=== PATIENT | male | born 1995 | race Caucasian/White ===

== ENCOUNTER 2019-12-24 13:12 | Emergency (ER) | payer MEDICAID, SELFPAY ==
--- NOTE | 2019-12-24 13:15 | DI.US_ITS ---
EXAM: US SCROTUM CLINICAL HISTORY: Left testicle painful lump TECHNIQUE: Ultrasound performed using standard protocol. COMPARISON: No exams were available for comparison FINDINGS: Scrotal ultrasound was performed according to usual protocol. Testes appear normal in echotexture an d symmetrical in size, there is normal vascular flow to both testes. The epididymi are unremarkable in appearance bilaterally. Note is made of a large left varicocele. No right varicocele seen. IMPRESSION: No evidence of an intra testicular mass. Left varicocele noted. DATA REPOSITORY:
[2019-12-24 13:19] VITALS: BP 139/96; PULSE 89; TEMP 36.8; O2SAT 99
[2019-12-24 13:42] VITALS: RESP 18
--- NOTE | 2019-12-24 15:00 | W.ED.GENAD ---
Discharge Plan Disposition Patient Disposition: HOME Condition: Stable Discharge Details Chief Complaint: GenMedical Clinical Impression: Varicocele Primary Care Provider: None,None ED Provider: Jignesh Mckeon Home Meds and New Rx's Prescriptions: Continued ibuprofen 200 MG tablet 200 mg PO PRN PRNRF: 0 Discharge Instructions Instructions: Varicocele (ED) Additional Instructions: At this time your urinalysis unremarkable, ultrasound reveals a varicocele. As we discussed you may find that wearing more tighter fitting underwear may be more comfortable. I have placed you on the care management list as well as the urology callback list. I will give you the name and number of our local urology team, please contact their office tomorrow for prompt outpatient reevaluation. Please watch for new or worsening symptoms and return to the ER for any concerns Referrals: Irving Hodges MD [ [facility] STAFF PHYSICIAN] - Medical Decision Making 24-year-old gentleman presenting for evaluation of left scrotum mass, discomfort for at least 2 years. He is specifically concerned that he may have testicular cancer. I feel as though the examination is most consistent with a varicocele. He denies having ever been sexually active, extremely low suspicion for infectious process. Will obtain ultrasound for further evaluation as well as urinalysis and send off a GC and chlamydia. Patient comfortable this plan Urinalysis unremarkable Ultrasound of scrotum reveals no evidence of an intratesticular mass. Left varicocele noted GC chlamydia pending although extremely low suspicion Findings with patient. Place him on the care management team to help expedite outpatient care and I will give him the name and number of our local urology team. I will also place him on the urology callback list. Medical Records Medical records reviewed: Yes I reviewed the patient's medical records. HPI General Mode of arrival: ambulatory. Date/Time Provider Initiated Documentation: 12/24/19 13:24. Limitations to Documentation: no limitations. Information obtained by: patient. HPI Narrative: This is a 24-year-old gentleman who denies any past medical history presenting with left testicle discomfort and possible mass for the past 2 years. He reports that the area seems to be more painful more frequently and may be getting a little larger so decided to come get it checked out. Denies recent illness or trauma. Denies any dysuria, hematuria, penile pain or discharge. He denies having ever been sexually active and therefore denies any STD risk. He reports that sometimes the pain seems to go up into his groin or lower abdomen on the left side. Nothing makes it worse or better. Related Data Home Medications Medication Instructions Recorded Confirmed ibuprofen 200 mg PO PRN PRN 02/18/13 12/24/19 Allergies Allergy/AdvReac Type Severity Reaction Status Date / Time No Known Allergies Allergy Unverified 02/18/13 19:22 General Stated Complaint: GenMedical JOANIE: 3 Review of Systems Constitutional Constitutional: Denies fever(s) and Denies weakness Cardiovascular Cardiovascular: Denies chest pain and Denies dyspnea Respiratory Respiratory: Denies cough and Denies dyspnea Gastrointestinal Gastrointestinal: Reports abdominal pain, Denies nausea and Denies vomiting Genitourinary Genitourinary: Denies hematuria, Denies oliguria, Denies difficulty urinating, Denies genital lesions, Denies genital pain, Denies dysuria, Denies penile discharge, Reports scrotal swelling, Reports testicular mass, Reports testicular pain, Denies urinary frequency, Denies urinary hesitancy and Denies urinary urgency Musculoskeletal Musculoskeletal: Denies back pain and Denies tingling Integumentary/Breasts Skin/Breast: Denies rash Neurologic Neurologic: Denies tingling and Denies weakness [facility] Social History Smoking/Tobacco Use Status: Never Alcohol Intake: never Drug use: Never Substance use type: does not use Do you feel safe at home: Yes Do you feel safe in your relationship?: Yes Exam Const General: cooperative, healthy appearing, comfortable and no acute distress Orientation: alert, awake and oriented x3 HENMT Head: normal to inspection, normocephalic and atraumatic Mouth: moist mucous membranes Eyes Conjunctivae: conjunctivae normal Sclera: sclerae normal Neck Neck: normal visual inspection, full ROM, trachea midline and supple Resp Effort & Inspection: normal respiratory effort and able to speak in complete sentences Auscultation: clear to auscultation bilaterally Cardio Rate: regular rate Rhythm: regular rhythm GI Inspection: normal to inspection Palpation: soft, no hernias and nontender Male General Exam: Yes normal external exam Penis: normal penis Meatus: meatus normal Scrotum: varicocele on the left Testes: normal Back/Spine/Pelvis Back: No back tenderness Skin General skin exam: no rashes or lesions noted Neuro General: patient alert, patient awake, moves all extremities and no focal motor deficits Gait: normal gait Motor: muscle tone normal throughout Sensory Exam: no sensory deficits noted Psych Appearance: grossly normal Mental Status: mental status grossly normal Course Vital Signs Vital signs: Vital Signs Temperature 36.8 C 12/24/19 13:19 Pulse 89 12/24/19 13:19 Blood Pressure 139/96 H 12/24/19 13:19 Pulse Oximetry 99 12/24/19 13:19 Temperature 36.8 C 12/24/19 13:19 Temperature Source Temporal Artery Scan 12/24/19 13:19 Pulse 89 12/24/19 13:19 Respiratory Rate 18 12/24/19 13:42 Respiratory Effort Non-Labored 12/24/19 13:42 Respiratory Depth Normal 12/24/19 13:42 Respiratory Pattern Normal 12/24/19 13:42 Blood Pressure 139/96 H 12/24/19 13:19 Blood Pressure Position Sitting 12/24/19 13:19 Pulse Oximetry 99 12/24/19 13:19 Oxygen Delivery Method Room Air 12/24/19 13:19 Oxygen Flow Rate 0 12/24/19 13:19 Pain Level 5 12/24/19 13:19
[2019-12-24 15:18] LABS: Bilirubin Negative (Negative); Blood Negative (Negative); Clarity Clear (Clear); Glucose Negative (Negative); Ketones Negative (Negative); Leukocyte Esterase Negative (Negative); Nitrite Negative (Negative); Urobilinogen 0.2 EU/dL (Up TO 0.2)
[2019-12-24 15:39] VITALS: BP 140/80; PULSE 81; RESP 18; TEMP 36.6; O2SAT 99
[2019-12-24 15:51] VITALS: BP 120/82; PULSE 79; RESP 18; TEMP 37; O2SAT 99
--- NOTE | 2019-12-24 15:53 | NUR.NOTE ---
Referral [facility] and copy to Care Management to establish pcp.Nursing Note:
--- NOTE | 2019-12-25 11:30 | CMPROGNOTE_ITS ---
- If Service Date Differs Date of service: 12/25/19 Time of Service: 11:30 Care Management Progress Note At the request of ED provider, CM coordinates a referral to Janie Salazar MD, on-call provider, of [facility] to assist Lance in obtaining a follow up visit and in establishing care with PCP. A referral is also made to [facility] for assistance with health insurance as Lance's medicaid has lapsed. Lastly, Lance's telephone number is updated as the current number on file ([phone]) is not in service. Lance can be contacted at [phone].
[2019-12-25 15:39] LABS: Chlamydia Result Negative (Negative); GC Result Negative (Negative)
== END 2019-12-24 15:50 | disposition home or self-care (01) ==
PROVIDERS: Emergency Provider Physician Assistant
DX: I86.1 Scrotal varices (principal)
CPT/HCPCS: 87491; 87591; 99284; 76870; 81003